=== PATIENT | female | born 1940 | race Caucasian/White ===

== ENCOUNTER 2016-11-14 08:49 | Emergency (ER) | payer OTHER, BC ==
[~2016-11-14] VITALS: Ht 149.9 cm; Wt 60.9 kg
[2016-11-14 10:17] LABS: EOSINOPHIL (%) 1.9 % (0-5); EOSINOPHIL COUNT 0.1 K/uL (0-0.3); HEMATOCRIT 35.8 % (36.0-46.0); IMMATURE GRANULOCYTE (%) 0.8 % (0.0-0.7); IMMATURE GRANULOCYTE COUNT 0.6 K/uL; LYMPHOCYTE COUNT 1.5 K/uL (1.0-2.8); MCH 29.7 PG (29.0-34.0); MCHC 34.6 G/DL (30.0-36.0); MCV 85.9 FL (83-99); MONOCYTE (%) 8.2 % (3-12); MONOCYTE COUNT 0.6 K/uL (0-0.8); NEUTROPHIL (%) 67.6 % (45-76); NEUTROPHIL COUNT 4.9 K/uL (1.8-6.4); PLATELET COUNT 220 K/uL (156-360); RBC DIS.WIDTH-CV 12.8 % (11.8-14.6); RBC DIS.WIDTH-SD 39.6 % (39-53); RED BLOOD COUNT 4.17 M/uL (3.80-5.20); WHITE BLOOD COUNT 7.2 K/uL (4.1-10.2)
[2016-11-14 10:31] LABS: CHLORIDE 103 mEq/L (99-109); SODIUM 140 mEq/L (136-147)
[2016-11-14 10:33] LABS: GLUCOSE 94 mg/dL (70-99)
[2016-11-14 10:35] LABS: ANION GAP 9 MEQ/L (2-14)
[2016-11-14 10:37] LABS: GFR ESTIMATE (CALCULATED) > 59 mL/min/
[2016-11-14 10:38] LABS: UREA NITROGEN (BUN) 28 mg/dL (9-23)
[2016-11-14 11:05] LABS: TROP-I INTERPRETATION NEGATIVE; TROPONIN-I 0.01 ng/mL (0.0-0.30)
[2016-11-14] MEDS ORDERED: TYLENOL WITH C1 EACH PO (12:10)
[2016-11-14] MEDS ORDERED: XALATAN2.5 ML BOTH EYES (12:16)
[2016-11-14] MEDS ORDERED: FUROSEMIDE40 MG PO (12:16)
[2016-11-14] MEDS ORDERED: EPINASTINE HCL5 ML BOTH EYES (12:17)
[2016-11-14] MEDS ORDERED: K-DUR20 MEQ PO (12:17)
[2016-11-14] MEDS ORDERED: HYZAAR 100-21 TABLET PO (12:18)
[2016-11-14] MEDS ORDERED: MELOXICAM15 MG PO (12:18)
[2016-11-14] MEDS ORDERED: VITAMIN B12-FO1 EACH PO (12:19)
[2016-11-14] MEDS ORDERED: OMEGA DHA92 MG PO (12:19)
[2016-11-14] MEDS ORDERED: VITAMIN D31000 UNIT PO (12:20)
[2016-11-14 12:46] VITALS: BP 139/64
[2016-11-15] MEDS ORDERED: OMEGA-3 FLAXS1000 MG PO
[2016-11-15] MEDS ORDERED: LO-DOSE ASPIRIN81 M2 PO
[2016-11-15] MEDS ORDERED: VITAMIN E100 UNIT PO
[2016-11-15] MEDS ORDERED: DIAZEPAM5 MG PO (00:01)
[2016-11-15] MEDS ORDERED: CYANOCOBALAM1000 MCG PO (00:02)
== END 2016-11-14 12:48 | disposition home or self-care (01) ==
LOC: EME 08:49
PROVIDERS: Emergency Medicine
DX: S09.90XA Unspecified injury of head, initial encounter (principal); S00.83XA Contusion of other part of head, initial encounter; S50.02XA Contusion of left elbow, initial encounter; S81.012A Laceration without foreign body, left knee, initial encounter; W01.198A Fall on same level from slipping, tripping and stumbling with subsequent striking against other object, initial encounter
CPT/HCPCS: 70450; 70486; 71010; 73080; 73564; 80048; 84484; 85025; 93005; 99281; 99285

== ENCOUNTER 2016-11-14 20:38 | Inpatient (IN) | payer OTHER, BC ==
[~2016-11-14] VITALS: Ht 149.9 cm; Wt 52.0 kg
[~2016-11-14 20:38] MED LIST: EPINASTINE HCL5 ML BOTH EYES; FUROSEMIDE40 MG PO; HYZAAR 100-21 TABLET PO; K-DUR20 MEQ PO; MELOXICAM15 MG PO; OMEGA DHA92 MG PO; TYLENOL WITH C1 EACH PO; VITAMIN B12-FO1 EACH PO; VITAMIN D31000 UNIT PO; XALATAN2.5 ML BOTH EYES
[2016-11-14 21:59] LABS: HEMATOCRIT 34.3 % (36.0-46.0); MCH 30.3 PG (29.0-34.0); MCHC 35.3 G/DL (30.0-36.0); MEAN PLAT.VOLUME 9.3 uM^3 (9.5-12.4); PLATELET COUNT 220 K/uL (156-360); RBC DIS.WIDTH-SD 40.1 % (39-53); RED BLOOD COUNT 3.99 M/uL (3.80-5.20)
[2016-11-14 22:05] LABS: CHLORIDE 102 mEq/L (99-109); POTASSIUM 3.1 mEq/L (3.7-5.4); SODIUM 143 mEq/L (136-147)
[2016-11-14 22:06] LABS: GLUCOSE 125 mg/dL (70-99); WHITE BLOOD COUNT 12.2 K/uL (4.1-10.2)
[2016-11-14 22:08] LABS: ANION GAP 13 MEQ/L (2-14)
[2016-11-14 22:10] LABS: GFR ESTIMATE (CALCULATED) > 59 mL/min/
[2016-11-14 22:11] LABS: UREA NITROGEN (BUN) 27 mg/dL (9-23)
[2016-11-14 22:15] LABS: TROP-I INTERPRETATION NEGATIVE; TROPONIN-I 0.01 ng/mL (0.0-0.30)
[2016-11-15] VITALS (8 sets, daily range): BP systolic 113–146; BP diastolic 52–63
[2016-11-15] MEDS ORDERED: LO-DOSE ASPIRIN81 M2 PO
[2016-11-15] MEDS ORDERED: VITAMIN E100 UNIT PO
[2016-11-15] MEDS ORDERED: OMEGA-3 FLAXS1000 MG PO
[2016-11-15] MEDS ORDERED: DIAZEPAM5 MG PO (00:01)
[2016-11-15] MEDS ORDERED: CYANOCOBALAM1000 MCG PO (00:02)
[2016-11-15 06:39] LABS: ALKALINE PHOSPHATASE 101 IU/L (3-129); ANION GAP 10 MEQ/L (2-14); CHLORIDE 101 MEQ/L (99-109); GFR ESTIMATE (CALCULATED) > 59 mL/min/; GLUCOSE 110 mg/dL (70-99); HEMATOCRIT 31.7 % (36.0-46.0); MCH 29.1 PG (29.0-34.0); MCHC 33.8 G/DL (30.0-36.0); MCV 86.1 FL (83-99); MEAN PLAT.VOLUME 9.6 uM^3 (9.5-12.4); PLATELET COUNT 194 K/uL (156-360); POTASSIUM 2.5 MEQ/L (3.7-5.4); RBC DIS.WIDTH-CV 13.1 % (11.8-14.6); RBC DIS.WIDTH-SD 41.2 % (39-53); RED BLOOD COUNT 3.68 M/uL (3.80-5.20); SAMPLE HEMOLYSIS CHECK 0; SAMPLE ICTERIC CHECK 0; SAMPLE LIPEMIA CHECK 0; SODIUM 139 MEQ/L (136-147); TOTAL BILIRUBIN 1.5 MG/DL (0.0-1.0); UREA NITROGEN (BUN) 21 mg/dL (9-23); WHITE BLOOD COUNT 5.3 K/uL (4.1-10.2)
[2016-11-15 10:20] LABS: ADD MIUA? YES; BILIRUBIN NEGATIVE; BLOOD NEGATIVE; COLOR YELLOW ((YELLOW)); GLUCOSE (STRIP) NEGATIVE; KETONES NEGATIVE; LEUKOCYTES SMALL; NITRITE NEGATIVE; PROTEIN (STRIP) NEGATIVE; SPECIFIC GRAVITY 1.013 (1.000-1.030); UROBILINOGEN 0.2 MG/DL (0.2-1.0)
[2016-11-15 11:08] LABS: BACTERIA NONE SEEN /HPF; EPITHELIAL CELLS RARE /HPF; HYALINE CASTS 0-5 /LPF; MUCUS NONE SEEN /LPF; RED BLOOD CELLS 0-5 /HPF (0-5); UCUL ADDED? NO
[2016-11-16] VITALS (8 sets, daily range): BP systolic 108–167; BP diastolic 55–73
[2016-11-16 05:50] LABS: ALKALINE PHOSPHATASE 80 IU/L (3-129); ANION GAP 6 MEQ/L (2-14); ANION GAP 7 MEQ/L (2-14); CHLORIDE 108 MEQ/L (99-109); GFR ESTIMATE (CALCULATED) > 59 mL/min/; GLUCOSE 100 mg/dL (70-99); GLUCOSE 99 mg/dL (70-99); POTASSIUM 3.7 MEQ/L (3.7-5.4); SAMPLE HEMOLYSIS CHECK 0; SAMPLE ICTERIC CHECK 0; SAMPLE LIPEMIA CHECK 0; SODIUM 140 MEQ/L (136-147); SODIUM 141 MEQ/L (136-147); TOTAL BILIRUBIN 0.6 MG/DL (0.0-1.0); UREA NITROGEN (BUN) 15 mg/dL (9-23)
[2016-11-16 05:51] LABS: POTASSIUM 3.7 MEQ/L (3.7-5.4)
[2016-11-16 11:19] LABS: HBSG INDEX 0.16; HPCA INDEX 0.07
[2016-11-16 11:20] LABS: ANTI-HEPATITIS A VIRUS (IGM) Nonreactive
[2016-11-16 11:22] LABS: ANTI-HEPATITIS B CORE (IGM) Nonreactive; HBC IgM INDEX 0.05
[2016-11-17] VITALS: BP 110/58
[2016-11-17 04:45] VITALS: BP 130/64
[2016-11-17 06:38] LABS: ALKALINE PHOSPHATASE 72 IU/L (3-129); ANION GAP 7 MEQ/L (2-14); CHLORIDE 103 MEQ/L (99-109); GFR ESTIMATE (CALCULATED) 57 mL/min/; GLUCOSE 99 mg/dL (70-99); SAMPLE HEMOLYSIS CHECK 1; SAMPLE ICTERIC CHECK 0; SAMPLE LIPEMIA CHECK 0; SODIUM 136 MEQ/L (136-147)
[2016-11-17 06:46] LABS: MAGNESIUM 1.8 mg/dl (1.3-2.7); TOTAL BILIRUBIN 0.5 MG/DL (0.0-1.0); UREA NITROGEN (BUN) 25 mg/dL (9-23)
[2016-11-17 06:47] LABS: POTASSIUM 4.3 MEQ/L (3.7-5.4)
[2016-11-17 06:51] LABS: EOSINOPHIL (%) 3.1 % (0-5); EOSINOPHIL COUNT 0.2 K/uL (0-0.3); HEMATOCRIT 30.4 % (36.0-46.0); IMMATURE GRANULOCYTE (%) 0.1 % (0.0-0.7); LYMPHOCYTE COUNT 2.4 K/uL (1.0-2.8); MCH 30.3 PG (29.0-34.0); MCHC 34.2 G/DL (30.0-36.0); MCV 88.6 FL (83-99); MEAN PLAT.VOLUME 9.6 uM^3 (9.5-12.4); MONOCYTE COUNT 0.8 K/uL (0-0.8); NEUTROPHIL (%) 54.4 % (45-76); NEUTROPHIL COUNT 4.1 K/uL (1.8-6.4); PLATELET COUNT 166 K/uL (156-360); RBC DIS.WIDTH-CV 13.1 % (11.8-14.6); RBC DIS.WIDTH-SD 42.1 % (39-53); RED BLOOD COUNT 3.43 M/uL (3.80-5.20)
[2016-11-17 06:52] LABS: WHITE BLOOD COUNT 7.5 K/uL (4.1-10.2)
[2016-11-17 07:41] LABS: POTASSIUM 4.2 MEQ/L (3.7-5.4)
[2016-11-17 08:30] VITALS: BP 133/56
[2016-11-17] MEDS ORDERED: POTASSIUM CHLO10 ME3 PO (09:41)
== END 2016-11-17 10:47 | disposition home or self-care (01) | DRG 158 ==
LOC: EME 20:38 → EDOF 11-15 00:50 → 5WEST 11-15 01:40 → 3EAST 11-15 10:44 → 5WEST 11-15 10:44 → 3EAST 11-15 13:48
PROVIDERS: Emergency Medicine; Internal Medicine; Nurse Practitioner Adult Health; Surgery
DX: S02.40FA Zygomatic fracture, left side, initial encounter for closed fracture (principal); S02.40DA Maxillary fracture, left side, initial encounter for closed fracture; S02.32XA Fracture of orbital floor, left side, initial encounter for closed fracture; E87.6 Hypokalemia; I10 Essential (primary) hypertension; W18.09XA Striking against other object with subsequent fall, initial encounter; K21.9 Gastro-esophageal reflux disease without esophagitis; F41.9 Anxiety disorder, unspecified; Y92.009 Unspecified place in unspecified non-institutional (private) residence as the place of occurrence of the external cause; E78.5 Hyperlipidemia, unspecified; E86.0 Dehydration; Z96.652 Presence of left artificial knee joint; I50.9 Heart failure, unspecified; R55 Syncope and collapse; S51.811A Laceration without foreign body of right forearm, initial encounter; S00.83XA Contusion of other part of head, initial encounter; N17.9 Acute kidney failure, unspecified
CPT/HCPCS: 70450; 70480; 80048; 80048 91; 80053; 80074; 81003; 83735; 84484; 84999; 85025; 85027; 93005; 99281; 99285; J2405; J3480; J7030; S0028